=== PATIENT | female | born 1985 | race African-American/Black ===

== ENCOUNTER 2016-08-09 23:21 | Emergency (ER) | payer OTHER ==
[~2016-08-09] VITALS: Ht 170.2 cm; Wt 66.0 kg
[2016-08-09 23:24] VITALS: BP 128/85; PULSE 80; RESP 18; TEMP 98.7; O2SAT 99
[2016-08-09] MEDS ORDERED: SERT-132 PO (23:30)
[2016-08-09] MEDS ORDERED: ZYPR5TAB PO (23:30)
[2016-08-09] MEDS ORDERED: LEXA10TA PO (23:30)
[2016-08-09] MEDS ORDERED: TRAZ50TA12 PO (23:30)
--- NOTE | 2016-08-10 00:05 | PD ---
HPI Chief Complaint: Psychiatric Symptoms Time Seen by Provider: 23:30 Travel History International Travel<30 days: No Contact w/Intl Traveler<30days: No Traveled to known affect area: No History of Present Illness HPI This patient is a 31 y.o. black female with a history of post depression with the complaint of needing to see a psychiatrist. She had a baby 7 months ago and has since been struggling with being a new mom. During this time, she was living with family in [place], which was very worrisome for her. KB says that his stress caused her to have a manic episode and "she lost it," prompting her to take her to [facility] for treatment last Monday. She was discharged home with antidepressants but did not take them. She had another manic episode after this, and her took her to [facility] for treatment. Since then , she has moved in with her grandmother, which is also stressful for her. Tonight, she is accompanied by her and her cousin who brought her to [place] concerned for her psychiatric well being. She denies suicidal or homocidal ideation, and states that she wants to see a psychiatrist to help her cope with her life struggles. PFSH Past Medical History Narrative Medical Post depression Psychiatric: Yes (PTSD, POST DEPRESSION) ?: Not : 1 Para: 1 Past Surgical History Surgical History: No Previous Surgery Family History Family History: Negative Social History Alcohol Use: No Tobacco Use: No Substance Use: No Allergies-Medications (Allergen,Severity, Reaction): Coded Allergies: Cinnamon (Verified Allergy, Unknown, 08/09/16) Soso (Verified Allergy, Unknown, 08/09/16) Reported Meds & Prescriptions Reported Meds & Active Scripts Active Reported Zyprexa (Olanzapine) 5 Mg Tab 5 Mg PO DAILY Lexapro (Escitalopram Oxalate) 10 Mg Tab 10 Mg PO DAILY Trazodone (Trazodone HCl) 50 Mg Tab 50 Mg PO HS Sertraline (Sertraline HCl) 50 Mg Tab 50 Mg PO DAILY Review of Systems Except as stated in HPI: all other systems reviewed are Neg Psychiatric: Positive: Depression, Mood Disorder (Patient states feeling "manic " ) Physical Exam Exam Limitations: Poor Historian Narrative Most of history obtained from and cousin. Data Data Last Documented VS Vital Signs Date Time Temp Pulse Resp B/P Pulse Ox O2 Delivery O2 Flow Rate FiO2 08/09/16 23:24 98.7 80 18 128/85 99 Orders Complete Blood Count With Diff (08/09/16 23:32) Comprehensive Metabolic Panel (08/09/16 23:32) Urinalysis - C+S If Indicated (08/09/16 23:32) Beta Hcg (Quant/Titer) (08/09/16 23:32) Psych Screen (08/09/16 23:32) Drug Screen, Random Urine (08/09/16 23:32) Alcohol (Ethanol) (08/09/16 23:32) Salicylates (Aspirin) (08/09/16 23:32) Tylenol (Acetaminophen) (08/09/16 23:32) Free Thyroxine (T4) (08/09/16 23:53) Thyroid Stimulating Hormone (08/09/16 23:53) Labs Laboratory Tests Test 08/09/16 23:53 White Blood Count 8.1 TH/MM3 Red Blood Count 4.64 MIL/MM3 Hemoglobin 13.2 GM/DL Hematocrit 39.6 % Mean Corpuscular Volume 85.3 FL Mean Corpuscular Hemoglobin 28.4 PG Mean Corpuscular Hemoglobin 33.3 % Concent Red Cell Distribution Width 13.1 % Platelet Count 272 TH/MM3 Mean Platelet Volume 9.6 FL Neutrophils (%) (Auto) 72.7 % Lymphocytes (%) (Auto) 16.7 % Monocytes (%) (Auto) 9.1 % Eosinophils (%) (Auto) 1.0 % Basophils (%) (Auto) 0.5 % Neutrophils # (Auto) 5.9 TH/MM3 Lymphocytes # (Auto) 1.4 TH/MM3 Monocytes # (Auto) 0.7 TH/MM3 Eosinophils # (Auto) 0.1 TH/MM3 Basophils # (Auto) 0.0 TH/MM3 CBC Comment DIFF FINAL Differential Comment Urine Color LIGHT-YELLOW Urine Turbidity CLEAR Urine pH 6.5 Urine Specific [place] 1.004 Urine Protein NEG mg/dL Urine Glucose (UA) NEG mg/dL Urine Ketones NEG mg/dL Urine Occult Blood MOD Urine Nitrite NEG Urine Bilirubin NEG Urine Urobilinogen LESS THAN 2.0 MG/DL Urine Leukocyte Esterase NEG Urine RBC 1 /hpf Urine WBC 1 /hpf Urine Squamous Epithelial <1 /hpf Cells Urine Mucus FEW /lpf Microscopic Urinalysis Comment CULT NOT INDICATED Sodium Level 139 MEQ/L Potassium Level 3.8 MEQ/L Chloride Level 105 MEQ/L Carbon Dioxide Level 24.9 MEQ/L Anion Gap 9 MEQ/L Blood Urea Nitrogen 11 MG/DL Creatinine 0.76 MG/DL Estimat Glomerular Filtration 109 ML/MIN Rate Random Glucose 91 MG/DL Calcium Level 8.7 MG/DL Total Bilirubin 0.4 MG/DL Aspartate Amino Transf 13 U/L (AST/SGOT) Alanine Aminotransferase 28 U/L (ALT/SGPT) Alkaline Phosphatase 69 U/L Total Protein 7.8 GM/DL Albumin 4.1 GM/DL Free Thyroxine 1.14 NG/DL Thyroid Stimulating Hormone 0.983 uIU/ML 3rd Gen Human Chorionic Gonadotropin, LESS THAN 1 Quant MIU/ML Salicylates Level LESS THAN 1.7 MG/DL Urine Opiates Screen NEG Acetaminophen Level LESS THAN 2.0 MCG/ML Urine Barbiturates Screen NEG Urine Amphetamines Screen NEG Urine Benzodiazepines Screen NEG Urine Cocaine Screen NEG Urine Cannabinoids Screen NEG Ethyl Alcohol Level LESS THAN 3 MG/DL MDM Medical Decision Making Medical Screen Exam Complete: Yes Emergency Medical Condition: No Differential Diagnosis Post depression, bipolar, psychosis Narrative Course please refer to johana note for disposition. results of work up pending at time of dictation. Waqar Lipscomb MD Aug 10, 2016 00:05
--- NOTE | 2016-08-10 00:06 | PD ---
HPI Chief Complaint: Psychiatric Symptoms Time Seen by Provider: 23:30 Travel History International Travel<30 days: No Contact w/Intl Traveler<30days: No Traveled to known affect area: No History of Present Illness HPI Patient is a 31 year female presented to the emergency voluntarily wanting to be evaluated by psychiatrist due to possible depression, increased stress. Patient has no history of psychological illness other than anxiety. She is brought in by her who states that she had a breakdown on August 01 where she was brought to [facility] under a Duggan act. Patient reports that she just "lost it". She equates it to an adult a temperature interim. She reports increased stress regarding finances, breast-feeding, family issues. Patient was diagnosed with a urinary tract infection then, she reports completing course of antibiotics and denies any urinary complaints. Patient denies any physical complaints at this time. Per 's report prior to the first Duggan act at [facility] she was hallucinating thinking that she was a [place] Aura. A denies any illicit drug use, she denies any suicidal or homicidal ideations, she denies any visual auditory hallucinations. PFSH Past Medical History Anxiety: Yes Psychiatric: Yes (PTSD, POST DEPRESSION) ?: Not : 1 Para: 1 Social History Alcohol Use: No Tobacco Use: No Substance Use: No Allergies-Medications (Allergen,Severity, Reaction): Coded Allergies: Cinnamon (Verified Allergy, Unknown, 08/09/16) [place] (Verified Allergy, Unknown, 08/09/16) Reported Meds & Prescriptions Reported Meds & Active Scripts Active Reported Zyprexa (Olanzapine) 5 Mg Tab 5 Mg PO DAILY Lexapro (Escitalopram Oxalate) 10 Mg Tab 10 Mg PO DAILY Trazodone (Trazodone HCl) 50 Mg Tab 50 Mg PO HS Sertraline (Sertraline HCl) 50 Mg Tab 50 Mg PO DAILY Review of Systems Except as stated in HPI: all other systems reviewed are Neg Psychiatric: Positive: Depression, Mood Disorder Physical Exam Narrative GENERAL: Well-developed, well-nourished, alert female. Resting comfortably in no acute distress. SKIN: Focused skin assessment warm/dry. HEAD: Atraumatic. Normocephalic. EYES: Pupils equal and round. No scleral icterus. No injection or drainage. ENT: No nasal bleeding or discharge. Mucous membranes pink and moist. NECK: Trachea midline. No JVD. CARDIOVASCULAR: Regular rate and rhythm. No murmur appreciated. RESPIRATORY: No accessory muscle use. Clear to auscultation. Breath sounds equal bilaterally. GASTROINTESTINAL: Abdomen soft, non-tender, nondistended. Hepatic and splenic margins not palpable. MUSCULOSKELETAL: No obvious deformities. No clubbing. No cyanosis. No edema. NEUROLOGICAL: Awake and alert. No obvious cranial nerve deficits. Motor grossly within normal limits. Normal speech. PSYCHIATRIC: Appropriate mood and affect; insight and judgment normal. Data Data Last Documented VS Vital Signs Date Time Temp Pulse Resp B/P Pulse Ox O2 Delivery O2 Flow Rate FiO2 08/09/16 23:24 98.7 80 18 128/85 99 Orders Complete Blood Count With Diff (08/09/16 23:32) Comprehensive Metabolic Panel (08/09/16 23:32) Urinalysis - C+S If Indicated (08/09/16 23:32) Beta Hcg (Quant/Titer) (08/09/16 23:32) Psych Screen (08/09/16 23:32) Drug Screen, Random Urine (08/09/16 23:32) Alcohol (Ethanol) (08/09/16 23:32) Salicylates (Aspirin) (08/09/16 23:32) Tylenol (Acetaminophen) (08/09/16 23:32) Free Thyroxine (T4) (08/09/16 23:53) Thyroid Stimulating Hormone (08/09/16 23:53) Labs Laboratory Tests Test 08/09/16 23:53 White Blood Count 8.1 TH/MM3 Red Blood Count 4.64 MIL/MM3 Hemoglobin 13.2 GM/DL Hematocrit 39.6 % Mean Corpuscular Volume 85.3 FL Mean Corpuscular Hemoglobin 28.4 PG Mean Corpuscular Hemoglobin 33.3 % Concent Red Cell Distribution Width 13.1 % Platelet Count 272 TH/MM3 Mean Platelet Volume 9.6 FL Neutrophils (%) (Auto) 72.7 % Lymphocytes (%) (Auto) 16.7 % Monocytes (%) (Auto) 9.1 % Eosinophils (%) (Auto) 1.0 % Basophils (%) (Auto) 0.5 % Neutrophils # (Auto) 5.9 TH/MM3 Lymphocytes # (Auto) 1.4 TH/MM3 Monocytes # (Auto) 0.7 TH/MM3 Eosinophils # (Auto) 0.1 TH/MM3 Basophils # (Auto) 0.0 TH/MM3 CBC Comment DIFF FINAL Differential Comment Urine Color LIGHT-YELLOW Urine Turbidity CLEAR Urine pH 6.5 Urine Specific [place] 1.004 Urine Protein NEG mg/dL Urine Glucose (UA) NEG mg/dL Urine Ketones NEG mg/dL Urine Occult Blood MOD Urine Nitrite NEG Urine Bilirubin NEG Urine Urobilinogen LESS THAN 2.0 MG/DL Urine Leukocyte Esterase NEG Urine RBC 1 /hpf Urine WBC 1 /hpf Urine Squamous Epithelial <1 /hpf Cells Urine Mucus FEW /lpf Microscopic Urinalysis Comment CULT NOT INDICATED Sodium Level 139 MEQ/L Potassium Level 3.8 MEQ/L Chloride Level 105 MEQ/L Carbon Dioxide Level 24.9 MEQ/L Anion Gap 9 MEQ/L Blood Urea Nitrogen 11 MG/DL Creatinine 0.76 MG/DL Estimat Glomerular Filtration 109 ML/MIN Rate Random Glucose 91 MG/DL Calcium Level 8.7 MG/DL Total Bilirubin 0.4 MG/DL Aspartate Amino Transf 13 U/L (AST/SGOT) Alanine Aminotransferase 28 U/L (ALT/SGPT) Alkaline Phosphatase 69 U/L Total Protein 7.8 GM/DL Albumin 4.1 GM/DL Free Thyroxine 1.14 NG/DL Thyroid Stimulating Hormone 0.983 uIU/ML 3rd Gen Human Chorionic Gonadotropin, LESS THAN 1 Quant MIU/ML Salicylates Level LESS THAN 1.7 MG/DL Urine Opiates Screen NEG Acetaminophen Level LESS THAN 2.0 MCG/ML Urine Barbiturates Screen NEG Urine Amphetamines Screen NEG Urine Benzodiazepines Screen NEG Urine Cocaine Screen NEG Urine Cannabinoids Screen NEG Ethyl Alcohol Level LESS THAN 3 MG/DL MDM Medical Decision Making Medical Screen Exam Complete: Yes Emergency Medical Condition: Yes Interpretation(s) Laboratory Tests Test 08/09/16 23:53 White Blood Count 8.1 TH/MM3 Red Blood Count 4.64 MIL/MM3 Hemoglobin 13.2 GM/DL Hematocrit 39.6 % Mean Corpuscular Volume 85.3 FL Mean Corpuscular Hemoglobin 28.4 PG Mean Corpuscular Hemoglobin 33.3 % Concent Red Cell Distribution Width 13.1 % Platelet Count 272 TH/MM3 Mean Platelet Volume 9.6 FL Neutrophils (%) (Auto) 72.7 % Lymphocytes (%) (Auto) 16.7 % Monocytes (%) (Auto) 9.1 % Eosinophils (%) (Auto) 1.0 % Basophils (%) (Auto) 0.5 % Neutrophils # (Auto) 5.9 TH/MM3 Lymphocytes # (Auto) 1.4 TH/MM3 Monocytes # (Auto) 0.7 TH/MM3 Eosinophils # (Auto) 0.1 TH/MM3 Basophils # (Auto) 0.0 TH/MM3 CBC Comment DIFF FINAL Differential Comment Urine Color LIGHT-YELLOW Urine Turbidity CLEAR Urine pH 6.5 Urine Specific [place] 1.004 Urine Protein NEG mg/dL Urine Glucose (UA) NEG mg/dL Urine Ketones NEG mg/dL Urine Occult Blood MOD Urine Nitrite NEG Urine Bilirubin NEG Urine Urobilinogen LESS THAN 2.0 MG/DL Urine Leukocyte Esterase NEG Urine RBC 1 /hpf Urine WBC 1 /hpf Urine Squamous Epithelial <1 /hpf Cells Urine Mucus FEW /lpf Microscopic Urinalysis Comment CULT NOT INDICATED Sodium Level 139 MEQ/L Potassium Level 3.8 MEQ/L Chloride Level 105 MEQ/L Carbon Dioxide Level 24.9 MEQ/L Anion Gap 9 MEQ/L Blood Urea Nitrogen 11 MG/DL Creatinine 0.76 MG/DL Estimat Glomerular Filtration 109 ML/MIN Rate Random Glucose 91 MG/DL Calcium Level 8.7 MG/DL Total Bilirubin 0.4 MG/DL Aspartate Amino Transf 13 U/L (AST/SGOT) Alanine Aminotransferase 28 U/L (ALT/SGPT) Alkaline Phosphatase 69 U/L Total Protein 7.8 GM/DL Albumin 4.1 GM/DL Free Thyroxine 1.14 NG/DL Thyroid Stimulating Hormone 0.983 uIU/ML 3rd Gen Human Chorionic Gonadotropin, LESS THAN 1 Quant MIU/ML Salicylates Level LESS THAN 1.7 MG/DL Urine Opiates Screen NEG Acetaminophen Level LESS THAN 2.0 MCG/ML Urine Barbiturates Screen NEG Urine Amphetamines Screen NEG Urine Benzodiazepines Screen NEG Urine Cocaine Screen NEG Urine Cannabinoids Screen NEG Ethyl Alcohol Level LESS THAN 3 MG/DL Vital Signs Date Time Temp Pulse Resp B/P Pulse Ox O2 Delivery O2 Flow Rate FiO2 08/09/16 23:24 98.7 80 18 128/85 99 Differential Diagnosis Psychosis versus delirium versus UTI versus depression versus mood disorder versus substance abuse versus other Narrative Course Pt is a 31 year old female presenting voluntarily for psychiatric evaluation. She denies any suicidal or homicidal ideations. Reports stress and post depression. Recent BA at [facility] on [address]. Pt has been cooperative and appropriate. Medical screening and psych eval discussed with pt. CBC, CMP, UA, UDS, acetaminophen, alcohol, salicylate levels reviewed and are unremarkable. Pt is medically cleared for psychiatric evaluation. Diagnosis Primary Impression: Medical clearance for psychiatric admission Condition: Stable Lisa Linn Aug 10, 2016 00:06
[2016-08-10 00:12] LABS: BLOOD, URINE MOD (NEG); GLUCOSE,URINE NEG (NEG); KETONE, URINE NEG (NEG); MUCUS URINE FEW /lpf (OCC); NITRITE,URINE NEG (NEG); PH, URINE 6.5 (5.0-8.5); SQUAMOUS EPITHELIAL CELL URINE <1 /hpf (0-5); URINE COLOR LIGHT-YELLOW (YELLW/STRAW)
[2016-08-10 00:18] LABS: AMPHETAMINE, URINE NEG (NEG); BARBITURATES, URINE NEG (NEG); COCAINE, URINE NEG (NEG)
[2016-08-10 00:25] LABS: AUTOMATED NEUTROPHIL # 5.9 TH/MM3 (1.8-7.7); BASOPHIL % 0.5 % (0.0-2.0); EOSINOPHIL # 0.1 TH/MM3 (0-0.4); HEMATOCRIT 39.6 % (35.0-46.0); HEMO FLAGS DIFF FINAL; LYMPH % 16.7 % (9.0-44.0); LYMPHOCYTE # 1.4 TH/MM3 (1.0-4.8); MEAN CELL VOLUME 85.3 FL (80.0-100.0); MEAN CORPUSCULAR HEMOGLOBIN 28.4 PG (27.0-34.0); MEAN CORPUSCULAR HGB CONC 33.3 % (32.0-36.0); MONO % 9.1 % (0.0-8.0); NEUT % 72.7 % (16.0-70.0); PLATELET COUNT 272 TH/MM3 (150-450); RED BLOOD COUNT 4.64 MIL/MM3 (4.00-5.30); RED CELL DISTRIBUTION WIDTH 13.1 % (11.6-17.2); WHITE BLOOD COUNT 8.1 TH/MM3 (4.0-11.0)
[2016-08-10 00:29] LABS: COMMENT (UR) CULT NOT INDICATED; CULTURE IF INDICATED CULT NOT INDICATED
[2016-08-10 00:34] LABS: ANION GAP 9 MEQ/L (5-15); BICARBONATE 24.9 MEQ/L (21.0-32.0); BLOOD UREA NITROGEN 11 MG/DL (7-18); CHLORIDE 105 MEQ/L (98-107); GLOMERULAR FILTRATION RATE 109 ML/MIN (>89); POTASSIUM 3.8 MEQ/L (3.5-5.1); SODIUM (NA) 139 MEQ/L (136-145)
[2016-08-10 00:35] LABS: AST (GOT) 13 U/L (15-37)
[2016-08-10 00:44] LABS: ACETAMINOPHEN LESS THAN 2.0 MCG/ML (10.0-30.0); ALKALINE PHOSPHATASE 69 U/L (45-117); ALT (GPT) 28 U/L (10-53); BETA HCG QUANT LESS THAN 1 MIU/ML (0-5); FREE T4 1.14 NG/DL (0.76-1.46); TOTAL BILIRUBIN ADULT 0.4 MG/DL (0.2-1.0)
== END 2016-08-10 03:58 | disposition home or self-care (01) ==
LOC: NEPD 23:21
DX: Z02.89 Encounter for other administrative examinations (principal); Z86.59 Personal history of other mental and behavioral disorders
CPT/HCPCS: 80053; 80307; 81001; 84439; 84443; 84702; 85025; 99284

== ENCOUNTER 2016-10-02 14:47 | Inpatient (IN) | payer OTHER ==
[~2016-10-02] VITALS: Ht 172.7 cm; Wt 66.5 kg
[2016-10-02] VITALS (7 sets, daily range): BP systolic 88–121; BP diastolic 50–70; PULSE 76–127; RESP 12–16; TEMP 98.9; O2SAT 97–100
[~2016-10-02 14:47] MED LIST: LEXA10TA PO; SERT-132 PO; TRAZ50TA12 PO; ZYPR5TAB PO
[2016-10-02] MEDS ORDERED: HALOPERIDOL LACTATE 5 MG/ML AMP IM ONE (15:15)
[2016-10-02] MEDS ORDERED: LORazepam 2 MG/ML VIAL IM ONE ×2 (15:15→17:30)
--- NOTE | 2016-10-02 15:39 | PD ---
HPI Chief Complaint: Psychiatric Symptoms Time Seen by Provider: 15:39 Travel History International Travel<30 days: No Contact w/Intl Traveler<30days: No Traveled to known affect area: No History of Present Illness HPI Is a 31-year-old female who presents under Duggan act. According to law enforcement report the patient was "diagnosed with depression as of August 10, 2016 and she is prescribed Abilify and has not taken her daily dosage. She was acting erratic and was not making sense with her comments. She was making statements about wanting/going to . She has been placed under a Duggan act twice since August 10, 2016. Per her her mental instability came from when she was dehydrated from being in a hot tub which caused her to have a urinary tract infection. UTI caustic chemical imbalance. Within the last 24 hours her behavior has been unusual and could not be controlled." Upon arrival the patient is acting erratically and is being uncooperative. She will not answer questions so history of present illness is limited. I tried calling the for information and he has not answered his phone. PFSH Past Medical History ?: Unknown Social History Tobacco Use: No Allergies-Medications (Allergen,Severity, Reaction): Coded Allergies: Cinnamon (Verified Allergy, Unknown, 10/02/16) [place] (Verified Allergy, Unknown, 10/02/16) Review of Systems ROS Limitations: Clinical Condition, Uncooperative Physical Exam Exam Limitations: Clinical Condition, Uncooperative Narrative GENERAL: Well-nourished, well-developed [-] patient, in no acute distress SKIN: Warm and dry. HEAD: Atraumatic. Normocephalic. EYES: Pupils equal and round. ENT: Mucosa pink and moist. NECK: Supple. Trachea midline. CARDIOVASCULAR: Regular rate. RESPIRATORY: No accessory muscle use. GASTROINTESTINAL: Flat. MUSCULOSKELETAL: No obvious deformities. No clubbing. No cyanosis. No edema. NEUROLOGICAL: Awake and alert. Oriented 3. No obvious cranial nerve deficits. Motor grossly within normal limits. Normal speech. Moves all extremities. 5/5 strength to all extremities. PSYCHIATRIC: Delusional thought processes. Data Data Last Documented VS Vital Signs Date Time Temp Pulse Resp B/P Pulse Ox O2 Delivery O2 Flow Rate FiO2 10/03/16 10:46 91 20 120/71 100 Room Air 10/02/16 15:34 98.9 Orders Haloperidol Inj (Haldol Inj) (10/02/16 15:15) Lorazepam Inj (Ativan Inj) (10/02/16 15:15) Complete Blood Count With Diff (10/02/16 15:18) Comprehensive Metabolic Panel (10/02/16 15:18) Urinalysis - C+S If Indicated (10/02/16 15:18) Ed Urine Pregnancytest Poc (10/02/16 15:18) Psych Screen (10/02/16 15:18) Drug Screen, Random Urine (10/02/16 15:18) Alcohol (Ethanol) (10/02/16 15:18) Salicylates (Aspirin) (10/02/16 15:18) Tylenol (Acetaminophen) (10/02/16 15:18) Ct Brain W/O Iv Contrast(Rout) (10/02/16 ) Lorazepam Inj (Ativan Inj) (10/02/16 17:30) Lorazepam Inj (Ativan Inj) (10/02/16 17:30) Potassium Chloride (Kcl) (10/02/16 18:15) Iv Access Insert/Monitor (10/02/16 18:42) Sodium Chlor 0.9% 1000 Ml Inj (Ns 1000 M (10/02/16 18:42) Sodium Chloride 0.9% Flush (Ns Flush) (10/02/16 18:45) Diet Heart Healthy (10/03/16 Breakfast) Diet Regular Basic (10/03/16 Lunch) Ziprasidone Inj (Geodon Inj) (10/03/16 11:15) Diphenhydramine Inj (Benadryl Inj) (10/03/16 11:15) Labs Laboratory Tests Test 10/02/16 10/02/16 10/02/16 15:18 16:10 17:12 Urine Color YELLOW Urine Turbidity HAZY Urine pH 5.5 Urine Specific [place] 1.037 Urine Protein 30 mg/dL Urine Glucose (UA) NEG mg/dL Urine Ketones 40 mg/dL Urine Occult Blood NEG Urine Nitrite NEG Urine Bilirubin NEG Urine Urobilinogen LESS THAN 2.0 MG/DL Urine Leukocyte Esterase NEG Urine RBC 1 /hpf Urine WBC 2 /hpf Urine Squamous Epithelial 2 /hpf Cells Urine Mucus MANY /lpf Microscopic Urinalysis Comment CULT NOT INDICATED White Blood Count 5.8 TH/MM3 Red Blood Count 4.10 MIL/MM3 Hemoglobin 11.8 GM/DL Hematocrit 36.3 % Mean Corpuscular Volume 88.4 FL Mean Corpuscular Hemoglobin 28.8 PG Mean Corpuscular Hemoglobin 32.6 % Concent Red Cell Distribution Width 14.5 % Platelet Count 212 TH/MM3 Mean Platelet Volume 9.2 FL Neutrophils (%) (Auto) 71.7 % Lymphocytes (%) (Auto) 17.2 % Monocytes (%) (Auto) 10.2 % Eosinophils (%) (Auto) 0.5 % Basophils (%) (Auto) 0.4 % Neutrophils # (Auto) 4.2 TH/MM3 Lymphocytes # (Auto) 1.0 TH/MM3 Monocytes # (Auto) 0.6 TH/MM3 Eosinophils # (Auto) 0.0 TH/MM3 Basophils # (Auto) 0.0 TH/MM3 CBC Comment DIFF FINAL Differential Comment Sodium Level 138 MEQ/L Potassium Level 3.3 MEQ/L Chloride Level 107 MEQ/L Carbon Dioxide Level 22.6 MEQ/L Anion Gap 8 MEQ/L Blood Urea Nitrogen 12 MG/DL Creatinine 0.77 MG/DL Estimat Glomerular Filtration 107 ML/MIN Rate Random Glucose 94 MG/DL Calcium Level 8.3 MG/DL Total Bilirubin 0.5 MG/DL Aspartate Amino Transf 14 U/L (AST/SGOT) Alanine Aminotransferase 22 U/L (ALT/SGPT) Alkaline Phosphatase 60 U/L Total Protein 7.0 GM/DL Albumin 3.6 GM/DL Salicylates Level LESS THAN 1.7 MG/DL Acetaminophen Level LESS THAN 2.0 MCG/ML Ethyl Alcohol Level LESS THAN 3 MG/DL Urine Opiates Screen NEG Urine Barbiturates Screen NEG Urine Amphetamines Screen NEG Urine Benzodiazepines Screen NEG Urine Cocaine Screen NEG Urine Cannabinoids Screen NEG MDM Medical Decision Making Medical Screen Exam Complete: Yes Emergency Medical Condition: Yes Medical Record Reviewed: Yes Differential Diagnosis Medical clearance for psych evaluation, psychosis, delusional thoughts Narrative Course Patient presents under a Duggan act. Physical examination and vital signs are essentially unremarkable. Patient has no medical complaints to report. Psych screen has been ordered. If the laboratory results are unremarkable, the patient will be medically cleared for psychiatric evaluation and disposition. 1650: The arrived at the ER. I spoke with the and he said that over the past 7 years since their first child was born the patient has had signs of psychosis here and there. Over the past 9 months since her second child has been born the patient has had increased symptoms of erratic behavior. Over the past 3 months that has even been more. He says she has been Duggan acted here once since August 10 after she was diagnosed with depression. Her visit number for that visit is the [phone]. Has been states the patient called the police herself today because she was paranoid thought he was breaking into the house when he was entering the house, coming home. She has family history of bipolar schizophrenia; brother and father. Has been states she has a master's degree and used to be a schoolteacher. He has tried to get her outpatient therapy at 2 different medical centers, one including [facility]. She supposed be taking Abilify and has also tried Zoloft in the past. Per the she doesn't want to take medications and has not been taking them. Her LANE ATTENDANT is in [place]. She has history of rheumatoid arthritis and fibromyalgia. She is allergic to walnuts and cinnamon. 1758: CBC unremarkable. Potassium 3.3. Potassium chloride by mouth ordered. UPT negative. Urinalysis pending. 182: CT head with no acute findings. Drug screen negative. 1830: BP low. IV site established and NS bolus ordered. BP will be stabilized and patient will be moved to J POD. Diagnosis Primary Impression: Medical clearance for psychiatric admission Condition: Stable Shelby Browning Oct 02, 2016 15:39
[2016-10-02 16:56] LABS: AUTOMATED NEUTROPHIL # 4.2 TH/MM3 (1.8-7.7); BASOPHIL % 0.4 % (0.0-2.0); EOSINOPHIL % 0.5 % (0.0-4.0); HEMATOCRIT 36.3 % (35.0-46.0); HEMO FLAGS DIFF FINAL; LYMPH % 17.2 % (9.0-44.0); MEAN CELL VOLUME 88.4 FL (80.0-100.0); MEAN CORPUSCULAR HEMOGLOBIN 28.8 PG (27.0-34.0); MEAN CORPUSCULAR HGB CONC 32.6 % (32.0-36.0); MONO % 10.2 % (0.0-8.0); NEUT % 71.7 % (16.0-70.0); PLATELET COUNT 212 TH/MM3 (150-450); RED CELL DISTRIBUTION WIDTH 14.5 % (11.6-17.2); WHITE BLOOD COUNT 5.8 TH/MM3 (4.0-11.0)
[2016-10-02 17:00] LABS: ANION GAP 8 MEQ/L (5-15); AST (GOT) 14 U/L (15-37); BICARBONATE 22.6 MEQ/L (21.0-32.0); BLOOD UREA NITROGEN 12 MG/DL (7-18); CHLORIDE 107 MEQ/L (98-107); GLOMERULAR FILTRATION RATE 107 ML/MIN (>89); POTASSIUM 3.3 MEQ/L (3.5-5.1); SODIUM (NA) 138 MEQ/L (136-145)
[2016-10-02 17:01] LABS: ALCOHOL LESS THAN 3 MG/DL (0-5)
[2016-10-02 17:04] LABS: ACETAMINOPHEN LESS THAN 2.0 MCG/ML (10.0-30.0); ALKALINE PHOSPHATASE 60 U/L (45-117); ALT (GPT) 22 U/L (10-53); TOTAL BILIRUBIN ADULT 0.5 MG/DL (0.2-1.0)
[2016-10-02] MEDS ORDERED: LORazepam 2 MG/ML VIAL IV PUSH ONE (17:30)
[2016-10-02] MEDS ORDERED: POTASSIUM CHLORIDE 20 MEQ CONTROLLED RELEASE TAB PO ONE (18:15)
--- NOTE | 2016-10-02 18:22 | RADRPT ---
EXAM DATE/TIME: 10/02/2016 17:51 [facility] COMPARISON: No previous studies available for comparison. INDICATIONS : Altered mental status. RADIATION DOSE: 29.55 CTDIvol (mGy) MEDICAL HISTORY : None SURGICAL HISTORY : None. ENCOUNTER: Initial ACUITY: 1 day PAIN SCALE: Non-responsive LOCATION: Bilateral cranial TECHNIQUE: Multiple contiguous axial images were obtained of the head. Using automated exposure control and adj ustment of the mA and/or kV according to patient size, radiation dose was kept as low as reasonably a chievable to obtain optimal diagnostic quality images. DICOM format image data is available electro nically for review and comparison. FINDINGS: CEREBRUM: The ventricles are normal for age. No evidence of midline shift, mass lesion, hemorrhage or acute in farction. No extra-axial fluid collections are seen. POSTERIOR FOSSA: The cerebellum and brainstem are intact. The 4th ventricle is midline. The cerebellopontine angle i s unremarkable. EXTRACRANIAL: The visualized portion of the orbits is intact. SKULL: The calvaria is intact. No evidence of skull fracture. CONCLUSION: No acute intracranial findings. Kamaljit Hoffmann MD on October 02, 2016 at 18:20 Board Certified Radiologist. This report was verified electronically.
[2016-10-02] MEDS ORDERED: SODIUM CHLOR 0.9% 1000 ML INJ 1,000 ML IV SCH (18:42)
[2016-10-02] MEDS ORDERED: SODIUM CHLORIDE 0.9% FLUSH 10 ML FLUSH IV FLUSH PRN (18:45)
[2016-10-02 19:23] LABS: BLOOD, URINE NEG (NEG); COMMENT (UR) CULT NOT INDICATED; CULTURE IF INDICATED CULT NOT INDICATED; GLUCOSE,URINE NEG (NEG); KETONE, URINE 40 mg/dL (NEG); MUCUS URINE MANY /lpf (OCC); NITRITE,URINE NEG (NEG); PH, URINE 5.5 (5.0-8.5); SQUAMOUS EPITHELIAL CELL URINE 2 /hpf (0-5); URINE COLOR YELLOW (YELLW/STRAW)
[2016-10-03 00:26] VITALS: BP 103/61; PULSE 85; RESP 16; O2SAT 98
[2016-10-03 07:41] VITALS: BP 109/68; PULSE 87; RESP 16; O2SAT 100
[2016-10-03 10:46] VITALS: BP 120/71; PULSE 91; RESP 20; O2SAT 100
[2016-10-03] MEDS ORDERED: ZIPRASIDONE MESYLATE 20 MG VIAL IM ONE (11:15)
[2016-10-03] MEDS ORDERED: diphenhydrAMINE HCL 50 MG/ML VIAL IM ONE (11:15)
[2016-10-03] MEDS ORDERED: LORazepam 2 MG/ML VIAL IM PRN (13:15)
[2016-10-03] MEDS ORDERED: diphenhydrAMINE HCL 50 MG CAP PO PRN (13:15)
[2016-10-03] MEDS ORDERED: ACETAMINOPHEN 325 MG TAB PO PRN (13:15)
[2016-10-03] MEDS ORDERED: MAGNESIUM HYDROXIDE SUSP 30 ML CUP PO PRN (13:15)
[2016-10-03] MEDS ORDERED: LORazepam 0.5 MG TAB PO PRN (13:15)
[2016-10-03] MEDS ORDERED: traZODone HCL 50 MG TAB PO PRN (13:15)
[2016-10-03] MEDS ORDERED: LORazepam 1 MG TAB PO PRN (13:15)
[2016-10-03] MEDS ORDERED: ALUMINUM/MAGNESIUM/SIMETH 30 ML CUP PO PRN (13:15)
--- NOTE | 2016-10-03 13:33 | HHI.HP ---
Provisional Diagnosis Admission Date Oct 03, 2016 at 13:03 [place] I. Paranoid schizophrenia Certification of Person's Competence To Provide Express and Informed Consent I have personally examined Vicki Beltre , a person being served at [facility] on, Oct 03, 2016 13:21. Express and informed consent means consent voluntarily given in writing, by a competent person, after sufficient explanation and disclosure of the subject matter involved to enable the person to make a knowing and willful decision without any element of force, fraud, deceit, duress, or other form of constraint or coercion. This person is 18 years of age or older, is not now known to be incompetent to consent to treatment with a guardian advocate, and does not have a health care surrogate or proxy currently making medical treatment decisions. I have found this person to be one of the following: [] Competent to provide express and informed consent, as defined above, for voluntary admission to this facility and is competent to provide express and informed consent for treatment. He/she has the consistent capacity to make well reasoned, willful, and knowing decisions concerning his or her medical or mental health treatment. The person fully and consistently understands the purpose of the admission for examination/placement and is fully capable of personally exercising all rights assured [place] [X] Incompetent to provide express and informed consent to voluntary admission, and this is incompetent to provide express and informed consent to treatment. The person must be transferred to involuntary status and a petition for a guardian advocate filed with the Circuit Court. [] Refusing to provide express and informed consent to voluntary admission but is competent to provide express and informed consent for treatment. The person must be discharged or transferred to involuntary status. Form shall be completed within 24 hours of a person's arrival at the receiving facility and filed in the clinical record of each person: 1. Admitted on a voluntary basis 2. Permitted to provide express and informed consent to his/her own treatment 3. Allowed to transfer from involuntary to voluntary status 4. Prior to permitting a person to consent to his or her own treatment after having been previously found incompetent to consent to treatment. History of Present Illness Capacity: Lacks Capacity HPI 31-year-old female with reported history of depression and 2 recent medical interventions for psychotic thinking currently presents under a Duggan act for irrational and bizarre behavior. Patient is a very poor historian, uncooperative and making little or no sense. She was brought to this facility under a Duggan act for acting erratically and not making sense. Apparently she has been prescribed Abilify but not taking this medication. She made statements that she wanted and was going to . She has been Duggan acted twice since August 10 of this year. According to the patient's , her mental instability came about as a result of dehydration and a urinary tract infection which occurred when she was in a hot tub. Over the last 24 hours, he reports her behavior has become increasingly unusual and uncontrollable. The patient was very difficult to interview by this physician. She claims this physician and the staff are laughing at her even though there is no evidence to support that. She is unable or unwilling to cooperate with staff and at one point blocked the exit of our nurse practitioner and nurse from the patient's room. She shows marked looseness of association as well as paranoid ideation. She feels healthcare providers here are attempting to harm her in some ill- defined way. She is unable to provide a cogent reason as to why she stopped taking her Abilify. Patient's was called again and states that her behavior has become increasingly erratic over the last 2 weeks. He believes she had a serotonin deficit in her brain but once that was corrected, something else has caused this irrational thinking and behavior. Review of Systems Except as stated in HPI: all other systems reviewed are Neg Past Psych History Psychological trauma history Denied for psychological trauma. History of depression. Violence risk - others (6 mos) Moderate to high. Patient blocked the exit of the nurse and nurse practitioner from her room. Violence risk - self (6 mos) High. Patient is psychotic and threatening to kill herself. Substance Abuse History Drugs/Alcohol past 12 months Denied Past Family Social History Coded Allergies: Cinnamon (Verified Allergy, Unknown, 10/02/16) [place] (Verified Allergy, Unknown, 10/02/16) Current Medications Medications (Trade) Dose Ordered Sig/Yg Route Start Time Stop Time Status Last Admin (NS Flush) 2 ml UNSCH PRN IV FLUSH 10/02/16 18:45 (Ativan) 1 mg Q6H PRN PO 10/03/16 13:15 (Ativan Inj) 1 mg Q6H PRN IM 10/03/16 13:15 (Ativan) 0.5 mg Q12H PRN PO 10/03/16 13:15 (Ativan Inj) 0.5 mg Q12H PRN IM 10/03/16 13:15 (Benadryl) 50 mg Q6H PRN PO 10/03/16 13:15 (Tylenol) 650 mg Q4H PRN PO 10/03/16 13:15 (Milk Of Magnesia Liq) 30 ml DAILY PRN PO 10/03/16 13:15 (Mag-Al Plus Susp Liq) 30 ml Q6H PRN PO 10/03/16 13:15 (Desyrel) 50 mg HS PRN PO 10/03/16 13:15 (Abilify) 2 mg HS PO 10/03/16 21:00 Family History Unknown Social History Patient is and sounds supportive and reasonable. Patient does have a child. 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 states patient is not alcoholic or substance abuser. Patient's Strengths (min. 2) Resilient and has access to healthcare. Physical Exam GENERAL: SKIN: Warm and dry. HEAD: Normocephalic. EYES: No scleral icterus. No injection or drainage. NECK: Supple, trachea midline. No JVD or lymphadenopathy. CARDIOVASCULAR: Regular rate and rhythm without murmurs, gallops, or rubs. RESPIRATORY: Breath sounds equal bilaterally. No accessory muscle use. GASTROINTESTINAL: Abdomen soft, non-tender, nondistended. MUSCULOSKELETAL: No cyanosis, or edema. BACK: Nontender without obvious deformity. No CVA tenderness. Vital Signs Vital Signs Date Time Temp Pulse Resp B/P Pulse Ox O2 Delivery O2 Flow Rate FiO2 10/03/16 10:46 91 20 120/71 100 Room Air 10/02/16 15:34 98.9 Mental Status Examination Speech: Incoherent Orientation: Person Memory: Unremarkable Thought Process: Loose Association Thought Content: Bizarre thinking, Paranoid Hallucination Type: None Attention and Concentration: Easily Distracted Suicidal Ideation: Yes Previous Suicide Attempts: No Homicidal Ideation: No Previous Homicide Attempts: No Insight: Poor Judgment: WNL, Unrealistic Affect: Irritable, Anxious Affect if Inappropriate: Blunt Mood: Anxious, Irritable Motor Activity: Normal gait Assessment & Plan Problem List: (1) Schizophrenia, paranoid type ICD Code: F20.0 Assessment & Plan Estimated LOS: days 31-year-old female brought in under a Duggan act for bizarre behavior and psychotic thinking. Patient meets criteria for paranoid schizophrenia in that she has a greater than six-month history of decompensation , coupled with acute psychotic symptoms and paranoid delusions. She also exhibits looseness of associations. She has undergone a head CT scan in the past, which does not demonstrate any abnormality. However, at this time she presents as a significant danger to herself and moderate to high danger to others. She is therefore being admitted for further evaluation and treatment. This physician is ordering a CBC and comprehensive metabolic profile to determine if any infectious process or metabolic process is causing or contributing to her psychosis. Likewise, we will also check her thyroid function, vitamin B-12 and vitamin D levels to ascertain if a deficiency is causing or contributing to her psychosis. She will also have an EKG to determine her cardiac conduction status and guarded against psychotropic medicines which might increase her QT interval. This physician started the patient back on Abilify 5 mg at bedtime but believes she will need long-acting injectable Abilify due to her noncompliance, lack of insight and markedly impaired judgment. Hospitalist consult is being obtained to look for hormonal imbalances. This physician spoke with the patient's nurse regarding her recent behavior. Finally, case management will be involved to provide further historical information and assist with disposition planning. David Hernandez MD Oct 03, 2016 13:32
--- NOTE | 2016-10-03 14:40 | PD.CONS ---
[facility] Consult Requested By DR BENAVIDES OF PSYCHIATRY Reason for Consult "HISTORY OF DEPRESSION and current psychoses please evaluate for hormonal imbalance" Primary Care Physician Unknown Diagnoses: (1) Schizophrenia, paranoid type (2) Rheumatoid arthritis (3) Fibromyalgia (4) Hypokalemia History of Present Illness Patient is a 31-year-old female who presents under A Duggan act. Patient was brought in by law enforcement and she was "diagnosed with depression as of 08/10/16 had been prescribed Abilify which is not taking. He has been acting erratic was not making sense with her comments. She was making statements of wanting to ." SHe was Duggan acted twice since 08/10/16. Per the she became mentally unstable after she was dehydrated from being in a hot tub which caused her to have a urinary tract infection and then the urinary tract infection caused a chemical imbalance per the . Within the last 24 hours has become more unusual and uncontrolled patient has been acting erratically and uncooperative Review of Systems ROS Limitations: Altered Mental Status, Uncooperative, Refused Psychiatric: COMPLAINS OF: Anxiety, Confusion, Mood changes, Depression, Agitation, Delusions Past Family Social History Allergies: Coded Allergies: Cinnamon (Verified Allergy, Unknown, 10/02/16) [place] (Verified Allergy, Unknown, 10/02/16) Past Medical History Arthritis and fibromyalgia and previous depression Past Surgical History Denies Reported Medications None Active Ordered Medications Current Medications Haloperidol Lactate (Haldol Inj) 10 mg ONCE ONCE IM Last administered on 15:32; Start 10/02/16 at 15:15; Stop 10/02/16 at 15:16; Status DC Lorazepam (Ativan Inj) 2 mg ONCE ONCE IM Last administered on 10/02/16 15:31 ; Start 10/02/16 at 15:15; Stop 10/02/16 at 15:16; Status DC Lorazepam (Ativan Inj) 2 mg ONCE ONCE IV PUSH ; Start 10/02/16 at 17:30; Stop 10/02/16 at 17:30; Status DC Lorazepam (Ativan Inj) 2 mg ONCE ONCE IM Last administered on 10/02/16 17:47 ; Start 10/02/16 at 17:30; Stop 10/02/16 at 17:31; Status DC Potassium Chloride 20 meq 20 meq ONCE ONCE PO ; Start 10/02/16 at 18:15; Stop 10/02/16 at 18:16; Status DC Sodium Chloride (NS 1000 ml Inj) 1,000 ml @ 1,000 mls/hr Q1H IV Last administered on 10/02/16 18:49; Start 10/02/16 at 18:42; Stop 10/02/16 at 19:41 ; Status DC Sodium Chloride (NS Flush) 2 ml UNSCH PRN IV FLUSH FLUSH AFTER USING IV ACCESS ; Start 10/02/16 at 18:45 Ziprasidone (Geodon Inj) 20 mg ONCE ONCE IM Last administered on 10/03/16 11: 15; Start 10/03/16 at 11:15; Stop 10/03/16 at 11:16; Status DC Diphenhydramine HCl (Benadryl Inj) 50 mg ONCE ONCE IM Last administered on 11:15; Start 10/03/16 at 11:15; Stop 10/03/16 at 11:16; Status DC Lorazepam (Ativan) 1 mg Q6H PRN PO MODERATE TO SEVERE ANXIETY; Start 10/03/16 at 13:15 Lorazepam (Ativan Inj) 1 mg Q6H PRN IM MODERATE TO SEVERE ANXIETY; Start at 13:15 Lorazepam (Ativan) 0.5 mg Q12H PRN PO MODERATE TO SEVERE ANXIETY; Start at 13:15 Lorazepam (Ativan Inj) 0.5 mg Q12H PRN IM MODERATE TO SEVERE ANXIETY; Start at 13:15 Diphenhydramine HCl (Benadryl) 50 mg Q6H PRN PO For mild anxiety and/or EPS; Start 10/03/16 at 13:15 Acetaminophen (Tylenol) 650 mg Q4H PRN PO Pain 1-5 or Temp >101F; Start at 13:15 Magnesium Hydroxide (Milk Of Magnesia Liq) 30 ml DAILY PRN PO CONSTIPATION; Start 10/03/16 at 13:15 Al Hydrox/Mg Hydrox/Simethicone (Mag-Al Plus Susp Liq) 30 ml Q6H PRN PO DYSPEPSIA; Start 10/03/16 at 13:15 Trazodone HCl (Desyrel) 50 mg HS PRN PO INSOMNIA; Start 10/03/16 at 13:15 Aripiprazole (Abilify) 2 mg HS PO ; Start 10/03/16 at 21:00 Family History Psychiatric diagnoses in the family- father and brother paranoid schizophrenic Social History supportive Recent child Has a master's degree No substance or alcohol abuse Physical Exam Vital Signs Vital Signs Date Time Temp Pulse Resp B/P Pulse Ox O2 Delivery O2 Flow Rate FiO2 10/03/16 10:46 91 20 120/71 100 Room Air 10/03/16 07:41 87 16 109/68 100 Room Air 10/03/16 00:26 85 16 103/61 98 10/02/16 23:36 82 16 108/63 98 Room Air 10/02/16 20:00 76 16 103/61 99 Room Air 10/02/16 18:57 82 14 91/55 98 Room Air 10/02/16 18:49 82 12 88/50 97 Room Air 10/02/16 17:13 81 14 107/59 99 Room Air 10/02/16 15:38 127 16 121/70 100 Room Air 10/02/16 15:34 98.9 123 16 121/70 100 Physical Exam GENERAL: This is a well-nourished, well-developed patient, in no apparent distress. SKIN: No rashes, ecchymoses or lesions. Cool and dry. HEAD: Atraumatic. Normocephalic. No temporal or scalp tenderness. EYES: Pupils equal round and reactive. Extraocular motions intact. No scleral icterus. No injection or drainage. ENT: Nose without bleeding, purulent drainage or septal hematoma. Throat without erythema, tonsillar hypertrophy or exudate. Uvula midline. Airway patent. NECK: Trachea midline. No JVD or lymphadenopathy. Supple, nontender, no meningeal signs. CARDIOVASCULAR: Regular rate and rhythm without murmurs, gallops, or rubs. S1- S2 no S3 or S4 no heave or thrill RESPIRATORY: Clear to auscultation. Breath sounds equal bilaterally. No wheezes , rales, or rhonchi. GASTROINTESTINAL: Abdomen soft, non-tender, nondistended. No hepato-splenomegaly , or palpable masses. No guarding. MUSCULOSKELETAL: Extremities without clubbing, cyanosis, or edema. No joint tenderness, effusion, or edema noted. No calf tenderness. Negative Homans sign bilaterally. NEUROLOGICAL: Awake and alert. Cranial nerves II through XII intact. Motor and sensory grossly within normal limits. Five out of 5 muscle strength in all muscle groups. Normal speech. Insight and judgment is limited--mood and behavior are inappropriate Laboratory Laboratory Tests Test 10/02/16 10/02/16 10/02/16 15:18 16:10 17:12 Urine Color YELLOW Urine Turbidity HAZY Urine pH 5.5 Urine Specific [place] 1.037 Urine Protein 30 Urine Glucose (UA) NEG Urine Ketones 40 Urine Occult Blood NEG Urine Nitrite NEG Urine Bilirubin NEG Urine Urobilinogen LESS THAN 2.0 Urine Leukocyte Esterase NEG Urine RBC 1 Urine WBC 2 Urine Squamous Epithelial 2 Cells Urine Mucus MANY Microscopic Urinalysis Comment CULT NOT INDICATED White Blood Count 5.8 Red Blood Count 4.10 Hemoglobin 11.8 Hematocrit 36.3 Mean Corpuscular Volume 88.4 Mean Corpuscular Hemoglobin 28.8 Mean Corpuscular Hemoglobin 32.6 Concent Red Cell Distribution Width 14.5 Platelet Count 212 Mean Platelet Volume 9.2 Neutrophils (%) (Auto) 71.7 Lymphocytes (%) (Auto) 17.2 Monocytes (%) (Auto) 10.2 Eosinophils (%) (Auto) 0.5 Basophils (%) (Auto) 0.4 Neutrophils # (Auto) 4.2 Lymphocytes # (Auto) 1.0 Monocytes # (Auto) 0.6 Eosinophils # (Auto) 0.0 Basophils # (Auto) 0.0 CBC Comment DIFF FINAL Differential Comment Sodium Level 138 Potassium Level 3.3 Chloride Level 107 Carbon Dioxide Level 22.6 Anion Gap 8 Blood Urea Nitrogen 12 Creatinine 0.77 Estimat Glomerular Filtration 107 Rate Random Glucose 94 Calcium Level 8.3 Total Bilirubin 0.5 Aspartate Amino Transf 14 (AST/SGOT) Alanine Aminotransferase 22 (ALT/SGPT) Alkaline Phosphatase 60 Total Protein 7.0 Albumin 3.6 Salicylates Level LESS THAN 1.7 Acetaminophen Level LESS THAN 2.0 Ethyl Alcohol Level LESS THAN 3 Urine Opiates Screen NEG Urine Barbiturates Screen NEG Urine Amphetamines Screen NEG Urine Benzodiazepines Screen NEG Urine Cocaine Screen NEG Urine Cannabinoids Screen NEG Result Diagram: 10/02/16 1610 10/02/16 1610 Imaging Last Impressions Head CT 10/02/16 0000 Signed Impressions: Service Date/Time: Sunday, October 02, 2016 17:51 - CONCLUSION: No acute intracranial findings. Kamaljit Hoffmann MD Assessment and Plan Problem List: (1) Rheumatoid arthritis ICD Code: M06.9 Status: Acute (2) Fibromyalgia ICD Code: M79.7 Status: Acute (3) Schizophrenia, paranoid type ICD Code: F20.0 Status: Acute (4) Hypokalemia ICD Code: E87.6 Status: Acute Assessment and Plan Schizophrenia/paranoid type will defer to psychiatry Recent depression versus schizophrenia and paranoid type will defer to psychiatry History of rheumatoid arthritis stable Compliance with medications due to schizophrenia paranoid type Anxiety and depression will defer to psychiatry Hypokalemia we will replace We'll check labs TSH free T4 and hemoglobin A1c magnesium and phosphate levels AM CBC CMP Code Status Full CODE Discussed Condition With Patient and RNs in the J pod Tin Degroot DO Oct 03, 2016 14:40
[2016-10-03] MEDS: LORazepam 2 MG/ML VIAL IM PRN (16:27)
[2016-10-03 21:02] VITALS: BP 100/66; PULSE 89; RESP 18; TEMP 99; O2SAT 100
[2016-10-03] MEDS: ARIPiprazole 2 MG TAB PO SCH (21:24)
[2016-10-04 05:46] VITALS: BP 101/58; PULSE 107; RESP 18; TEMP 97.6; O2SAT 99
[2016-10-04 08:46] LABS: AUTOMATED NEUTROPHIL # 2.7 TH/MM3 (1.8-7.7); BASOPHIL % 0.5 % (0.0-2.0); EOSINOPHIL # 0.1 TH/MM3 (0-0.4); HEMATOCRIT 38.7 % (35.0-46.0); HEMO FLAGS DIFF FINAL; LYMPH % 32.2 % (9.0-44.0); LYMPHOCYTE # 1.5 TH/MM3 (1.0-4.8); MEAN CELL VOLUME 88.4 FL (80.0-100.0); MEAN CORPUSCULAR HEMOGLOBIN 29.1 PG (27.0-34.0); MEAN CORPUSCULAR HGB CONC 32.9 % (32.0-36.0); MONO % 7.3 % (0.0-8.0); PLATELET COUNT 228 TH/MM3 (150-450); RED BLOOD COUNT 4.37 MIL/MM3 (4.00-5.30); RED CELL DISTRIBUTION WIDTH 14.5 % (11.6-17.2); WHITE BLOOD COUNT 4.7 TH/MM3 (4.0-11.0)
[2016-10-04 09:06] LABS: ANION GAP 5 MEQ/L (5-15); AST (GOT) 16 U/L (15-37); BICARBONATE 28.1 MEQ/L (21.0-32.0); BLOOD UREA NITROGEN 8 MG/DL (7-18); CHLORIDE 106 MEQ/L (98-107); GLOMERULAR FILTRATION RATE 91 ML/MIN (>89); POTASSIUM 3.7 MEQ/L (3.5-5.1); SODIUM (NA) 139 MEQ/L (136-145)
[2016-10-04 09:34] LABS: ALKALINE PHOSPHATASE 62 U/L (45-117); ALT (GPT) 25 U/L (10-53); FREE T4 1.33 NG/DL (0.76-1.46); HDL CHOLESTEROL 70.6 MG/DL (40.0-60.0); LDL CHOLESTEROL 79 MG/DL (0-99); TOTAL BILIRUBIN ADULT 0.7 MG/DL (0.2-1.0)
--- NOTE | 2016-10-04 10:35 | HHI.PR ---
Subjective Remarks Patient is a 31-year-old female who presents under A Duggan act. Patient was brought in by law enforcement and she was "diagnosed with depression as of 08/10/16 had been prescribed Abilify which is not taking. He has been acting erratic was not making sense with her comments. She was making statements of wanting to ." SHe was Duggan acted twice since 08/10/16. Per the she became mentally unstable after she was dehydrated from being in a hot tub which caused her to have a urinary tract infection and then the urinary tract infection caused a chemical imbalance per the . Within the last 24 hours has become more unusual and uncontrolled patient has been acting erratically and uncooperative 8-15 MUCH MORE TALKATIVE TODAY BUT STILL PARANOID Objective Vitals Vital Signs Date Time Temp Pulse Resp B/P Pulse Ox O2 Delivery O2 Flow Rate FiO2 10/04/16 05:46 97.6 107 18 101/58 99 10/03/16 21:02 99.0 89 18 100/66 100 10/03/16 10:46 91 20 120/71 100 Room Air Result Diagram: 10/04/16 0754 10/04/16 0745 Other Results Laboratory Tests Test 10/04/16 10/04/16 07:45 07:54 Sodium Level 139 MEQ/L Potassium Level 3.7 MEQ/L Chloride Level 106 MEQ/L Carbon Dioxide Level 28.1 MEQ/L Anion Gap 5 MEQ/L Blood Urea Nitrogen 8 MG/DL Creatinine 0.89 MG/DL Estimat Glomerular Filtration 91 ML/MIN Rate Random Glucose 114 MG/DL Calcium Level 8.7 MG/DL Total Bilirubin 0.7 MG/DL Aspartate Amino Transf 16 U/L (AST/SGOT) Alanine Aminotransferase 25 U/L (ALT/SGPT) Alkaline Phosphatase 62 U/L Total Protein 7.3 GM/DL Albumin 3.7 GM/DL Triglycerides Level 54 MG/DL Cholesterol Level 160 MG/DL LDL Cholesterol 79 MG/DL HDL Cholesterol 70.6 MG/DL Cholesterol/HDL Ratio 2.26 RATIO Vitamin B12 Level 795 PG/ML 25-Hydroxy Vitamin D Total 24.2 ng/ML Free Thyroxine 1.33 NG/DL Thyroid Stimulating Hormone 1.430 uIU/ML 3rd Gen White Blood Count 4.7 TH/MM3 Red Blood Count 4.37 MIL/MM3 Hemoglobin 12.7 GM/DL Hematocrit 38.7 % Mean Corpuscular Volume 88.4 FL Mean Corpuscular Hemoglobin 29.1 PG Mean Corpuscular Hemoglobin 32.9 % Concent Red Cell Distribution Width 14.5 % Platelet Count 228 TH/MM3 Mean Platelet Volume 9.3 FL Neutrophils (%) (Auto) 57.0 % Lymphocytes (%) (Auto) 32.2 % Monocytes (%) (Auto) 7.3 % Eosinophils (%) (Auto) 3.0 % Basophils (%) (Auto) 0.5 % Neutrophils # (Auto) 2.7 TH/MM3 Lymphocytes # (Auto) 1.5 TH/MM3 Monocytes # (Auto) 0.3 TH/MM3 Eosinophils # (Auto) 0.1 TH/MM3 Basophils # (Auto) 0.0 TH/MM3 CBC Comment DIFF FINAL Differential Comment Imaging Last Impressions Head CT 10/02/16 0000 Signed Impressions: Service Date/Time: Sunday, October 02, 2016 17:51 - CONCLUSION: No acute intracranial findings. Kamaljit Hoffmann MD Objective Remarks GENERAL: This is a well-nourished, well-developed patient, in no apparent distress. SKIN: No rashes, ecchymoses or lesions. Cool and dry. HEAD: Atraumatic. Normocephalic. No temporal or scalp tenderness. EYES: Pupils equal round and reactive. Extraocular motions intact. No scleral icterus. No injection or drainage. ENT: Nose without bleeding, purulent drainage or septal hematoma. Throat without erythema, tonsillar hypertrophy or exudate. Uvula midline. Airway patent. NECK: Trachea midline. No JVD or lymphadenopathy. Supple, nontender, no meningeal signs. CARDIOVASCULAR: Regular rate and rhythm without murmurs, gallops, or rubs. S1- S2 no S3 or S4 no heave or thrill RESPIRATORY: Clear to auscultation. Breath sounds equal bilaterally. No wheezes , rales, or rhonchi. GASTROINTESTINAL: Abdomen soft, non-tender, nondistended. No hepato-splenomegaly , or palpable masses. No guarding. MUSCULOSKELETAL: Extremities without clubbing, cyanosis, or edema. No joint tenderness, effusion, or edema noted. No calf tenderness. Negative Homans sign bilaterally. NEUROLOGICAL: Awake and alert. Cranial nerves II through XII intact. Motor and sensory grossly within normal limits. Five out of 5 muscle strength in all muscle groups. Normal speech. Insight and judgment is limited--mood and behavior are inappropriate Medications and IVs Current Medications Haloperidol Lactate (Haldol Inj) 10 mg ONCE ONCE IM Last administered on 15:32; Start 10/02/16 at 15:15; Stop 10/02/16 at 15:16; Status DC Lorazepam (Ativan Inj) 2 mg ONCE ONCE IM Last administered on 10/02/16 15:31 ; Start 10/02/16 at 15:15; Stop 10/02/16 at 15:16; Status DC Lorazepam (Ativan Inj) 2 mg ONCE ONCE IV PUSH ; Start 10/02/16 at 17:30; Stop 10/02/16 at 17:30; Status DC Lorazepam (Ativan Inj) 2 mg ONCE ONCE IM Last administered on 10/02/16 17:47 ; Start 10/02/16 at 17:30; Stop 10/02/16 at 17:31; Status DC Potassium Chloride 20 meq 20 meq ONCE ONCE PO ; Start 10/02/16 at 18:15; Stop 10/02/16 at 18:16; Status DC Sodium Chloride (NS 1000 ml Inj) 1,000 ml @ 1,000 mls/hr Q1H IV Last administered on 10/02/16 18:49; Start 10/02/16 at 18:42; Stop 10/02/16 at 19:41 ; Status DC Sodium Chloride (NS Flush) 2 ml UNSCH PRN IV FLUSH FLUSH AFTER USING IV ACCESS ; Start 10/02/16 at 18:45 Ziprasidone (Geodon Inj) 20 mg ONCE ONCE IM Last administered on 10/03/16 11: 15; Start 10/03/16 at 11:15; Stop 10/03/16 at 11:16; Status DC Diphenhydramine HCl (Benadryl Inj) 50 mg ONCE ONCE IM Last administered on 11:15; Start 10/03/16 at 11:15; Stop 10/03/16 at 11:16; Status DC Lorazepam (Ativan) 1 mg Q6H PRN PO MODERATE TO SEVERE ANXIETY; Start 10/03/16 at 13:15 Lorazepam (Ativan Inj) 1 mg Q6H PRN IM MODERATE TO SEVERE ANXIETY Last administered on 10/03/16 16:27; Start 10/03/16 at 13:15 Lorazepam (Ativan) 0.5 mg Q12H PRN PO MODERATE TO SEVERE ANXIETY; Start at 13:15 Lorazepam (Ativan Inj) 0.5 mg Q12H PRN IM MODERATE TO SEVERE ANXIETY; Start at 13:15 Diphenhydramine HCl (Benadryl) 50 mg Q6H PRN PO For mild anxiety and/or EPS; Start 10/03/16 at 13:15; Status Hold Acetaminophen (Tylenol) 650 mg Q4H PRN PO Pain 1-5 or Temp >101F; Start at 13:15 Magnesium Hydroxide (Milk Of Magnesia Liq) 30 ml DAILY PRN PO CONSTIPATION; Start 10/03/16 at 13:15 Al Hydrox/Mg Hydrox/Simethicone (Mag-Al Plus Susp Liq) 30 ml Q6H PRN PO DYSPEPSIA; Start 10/03/16 at 13:15 Trazodone HCl (Desyrel) 50 mg HS PRN PO INSOMNIA; Start 10/03/16 at 13:15 Aripiprazole (Abilify) 2 mg HS PO Last administered on 10/03/16t 21:24; Start 10/03/16 at 21:00 Urinary Catheter: No Vascular Central Line Catheter: No A/P Problem List: (1) Rheumatoid arthritis ICD Code: M06.9 Status: Acute (2) Fibromyalgia ICD Code: M79.7 Status: Acute (3) Schizophrenia, paranoid type ICD Code: F20.0 Status: Acute (4) Hypokalemia ICD Code: E87.6 Status: Acute Assessment and Plan Schizophrenia/paranoid type will defer to psychiatry Recent depression versus schizophrenia and paranoid type will defer to psychiatry History of rheumatoid arthritis stable Compliance with medications due to schizophrenia paranoid type Anxiety and depression will defer to psychiatry Hypokalemia we will replace We'll check labs TSH free T4 and hemoglobin A1c magnesium and phosphate levels WILL SIGN OFF PLEASE RECONSULT IF NEEDED Tin Degroot DO Oct 04, 2016 10:35
[2016-10-04 11:27] LABS: HEMOGLOBIN A1a 1.2 %; HEMOGLOBIN A1b 0.8 %; HEMOGLOBIN Ao 86.3 %; HEMOGLOBIN F 1.1 %; HEMOGLOBIN LA1C 1.8 %; HEMOGLOBIN P3 3.2 %
--- NOTE | 2016-10-04 13:47 | EKG ---
Date Performed: 10/04/2016 Time Performed: 09:25:39 PTAGE: 31 years EKG: Sinus rhythm POSSIBLE LEFT ATRIAL ENLARGEMENT BORDERLINE ECG NO PREVIOUS TRACING DOCTOR: Luís Hillman Interpretating Date/Time 10/04/2016 13:46:21
[2016-10-04] MEDS ORDERED: diphenhydrAMINE HCL 50 MG CAP PO PRN (14:15)
[2016-10-04] MEDS ORDERED: MAGNESIUM HYDROXIDE SUSP 30 ML CUP PO PRN (14:15)
[2016-10-04] MEDS ORDERED: ALUMINUM/MAGNESIUM/SIMETH 30 ML CUP PO PRN (14:15)
[2016-10-04] MEDS ORDERED: hydrOXYzine HCL 50 MG TAB PO PRN (14:15)
--- NOTE | 2016-10-04 14:25 | HHI.PYPN ---
Subjective Remarks Patient seen in her room with nurse Rosalee and medical student Carie. Chart reviewed. Dr. Hernandez did first opinion petition supporting Duggan act patient was seen by me please note following note. I agree with Dr. Hernandez. Patient meets criteria for involuntary psychiatric hospitalization under the Duggan act. Thus will cosign second opinion petition supporting Duggan act. Patient is alert clean and neat Afro-Eritrean female sitting in her room with staff as mentioned she is quite guarded and vigilance. Showing no insight into behaviors that led to this hospitalization. She vaguely acknowledges past mental health issues. She acknowledges that appears to have been to prior Duggan acts. Though minimizing them. She states she has some past problems with little bit of depression and some anxiety. Though poor other documents in the chart this is been a significantly involving psychotic episode perhaps starting near the of her most recent child. Event at the present time patient does meet criteria for further stay under the Duggan act. We will attempt to reach patient's to get further information related to this lady. She did take the initial dose of 2 mg Abilify last night we'll continue that dose at the present time Review of Systems Constitutional: DENIES: Diaphoretic episodes, Fatigue, Fever, Weight gain, Weight loss, Chills, Dizziness, Change in appetite, Night Sweats Endocrine: DENIES: Abnorml menstrual pattern, Heat/cold intolerance, Polydipsia , Polyuria, Polyphagia Eyes: DENIES: Blurred vision, Diplopia, Eye inflammation, Eye pain, Vision loss , Photosensitivity, Double Vision Ears, nose, mouth, throat: DENIES: Tinnitus, Hearing loss, Vertigo, Nasal discharge, Oral lesions, Throat pain, Hoarseness, Ear Pain, Running Nose, Epistaxis, Sinus Pain, Toothache, Odynophagia Respiratory: DENIES: Apneas, Cough, Snoring, Wheezing, Hemoptysis, Sputum production, Shortness of breath Cardiovascular: DENIES: Chest pain, Palpitations, Syncope, Dyspnea on Exertion , PND, Lower Extremity Edema, Orthopnea, Claudication Gastrointestinal: DENIES: Abdominal pain, Black stools, Bloody stools, Constipation, Diarrhea, Nausea, Vomiting, Difficulty Swallowing, Anorexia Genitourinary: DENIES: Abnormal vaginal bleeding, Dysmenorrhea, Dyspareunia, Sexual dysfunction, Urinary frequency, Urinary incontinence, Urgency, Hematuria , Dysuria, Nocturia, Vaginal discharge Musculoskeletal: DENIES: Joint pain, Muscle aches, Stiffness, Joint Swelling, Back pain, Neck pain Integumentary: DENIES: Abnormal pigmentation, Pruritus, Rash, Nail changes, Breast masses, Breast skin changes, Nipple discharge Hematologic/lymphatic: DENIES: Bruising, Lymphadenopathy Immunologic/allergic: DENIES: Eczema, Urticaria Neurologic: DENIES: Abnormal gait, Headache, Localized weakness, Paresthesias, Seizures, Speech Problems, Tremor, Poor Balance Psychiatric: COMPLAINS OF: Depression, Suicidal Ideation (vague), Delusions ( vague) Objective Alert: Yes [place]: Person, Place, Date, Situation Mood: Calm, Depressed Affect: Restricted Memory Intact: Comment (fair) Hallucinations: Other (denies) Delusions: Yes Delusion Type: Paranoid Suicidal: Ideation (made vague statements now denying) Homicidal: Ideation (denies) Insight/Judgment Poor Labs Test 10/04/16 10/04/16 07:45 07:54 Sodium Level 139 MEQ/L Potassium Level 3.7 MEQ/L Chloride Level 106 MEQ/L Carbon Dioxide Level 28.1 MEQ/L Anion Gap 5 MEQ/L Blood Urea Nitrogen 8 MG/DL Creatinine 0.89 MG/DL Estimat Glomerular Filtration 91 ML/MIN Rate Random Glucose 114 MG/DL Hemoglobin A1c 5.1 % Calcium Level 8.7 MG/DL Total Bilirubin 0.7 MG/DL Aspartate Amino Transf 16 U/L (AST/SGOT) Alanine Aminotransferase 25 U/L (ALT/SGPT) Alkaline Phosphatase 62 U/L Total Protein 7.3 GM/DL Albumin 3.7 GM/DL Triglycerides Level 54 MG/DL Cholesterol Level 160 MG/DL LDL Cholesterol 79 MG/DL HDL Cholesterol 70.6 MG/DL Cholesterol/HDL Ratio 2.26 RATIO Vitamin B12 Level 795 PG/ML 25-Hydroxy Vitamin D Total 24.2 ng/ML Free Thyroxine 1.33 NG/DL Thyroid Stimulating Hormone 1.430 uIU/ML 3rd Gen White Blood Count 4.7 TH/MM3 Red Blood Count 4.37 MIL/MM3 Hemoglobin 12.7 GM/DL Hematocrit 38.7 % Mean Corpuscular Volume 88.4 FL Mean Corpuscular Hemoglobin 29.1 PG Mean Corpuscular Hemoglobin 32.9 % Concent Red Cell Distribution Width 14.5 % Platelet Count 228 TH/MM3 Mean Platelet Volume 9.3 FL Neutrophils (%) (Auto) 57.0 % Lymphocytes (%) (Auto) 32.2 % Monocytes (%) (Auto) 7.3 % Eosinophils (%) (Auto) 3.0 % Basophils (%) (Auto) 0.5 % Neutrophils # (Auto) 2.7 TH/MM3 Lymphocytes # (Auto) 1.5 TH/MM3 Monocytes # (Auto) 0.3 TH/MM3 Eosinophils # (Auto) 0.1 TH/MM3 Basophils # (Auto) 0.0 TH/MM3 CBC Comment DIFF FINAL Differential Comment Vitals/IOs Vital Signs Date Time Temp Pulse Resp B/P Pulse Ox O2 Delivery O2 Flow Rate FiO2 10/04/16 05:46 97.6 107 18 101/58 99 10/03/16 10:46 Room Air Assessment & Plan Problem List: (1) Schizophrenia, paranoid type ICD Code: F20.0 Assessment & Plan Estimated LOS: days patient continue psychotic and delusional, with little insight. For now continue treatment. Will attempt to gain further information from patient's Justification for Cont. Inpt. At this time patient will decompensate if placed in a lower level of care Discharge Planning To be determined Request HC Surrog/Guard Advoc?: Yes Ricky Esteban MD Oct 04, 2016 14:25
[2016-10-04] MEDS ORDERED: HALOPERIDOL LACTATE 5 MG/ML AMP IM STA (14:38)
[2016-10-04] MEDS ORDERED: LORazepam 2 MG/ML VIAL IM STA (14:38)
[2016-10-04] MEDS ORDERED: diphenhydrAMINE HCL 50 MG/ML VIAL IM STA (14:38)
[2016-10-04 18:00] VITALS: BP 103/52; PULSE 102; RESP 18; TEMP 97.9; O2SAT 98
[2016-10-04] MEDS: ARIPiprazole 2 MG TAB PO SCH ×2 (21:00→21:29)
[2016-10-05 05:59] VITALS: BP 102/64; PULSE 93; RESP 18; TEMP 97.7; O2SAT 95
--- NOTE | 2016-10-05 10:44 | HHI.PYPN ---
Subjective Remarks Patient seen in her room with nurse Rachelle, chart reviewed. Patient did need emergency treatment order of Haldol 10 Ativan to Benadryl 50 mg restricted her [id number] behavior screaming and yelling eating the windows in the nurses station. This morning patient is calmer somewhat focus though still no insight into her issues. She denies mental illness but she states she has no problems at this time with the Abilify. Patient demanded to be discharged today because she is one of "gods children". When I attempted to process her behaviors in a mental health issues she became angry irritable yelling at me "I you my God" distant patient remains quite psychotic and delusional. And labile. Will increase Abilify from 2 mg at bedtime to 5 mg at bedtime with patient's mood lability I feel we need to consider her diagnosis might be schizoaffective disorder bipolar type, will continue to assess Review of Systems Except as stated in HPI: all other systems reviewed are Neg Objective Alert: Yes [place]: Person, Place, Date, Situation Mood: Calm, Depressed Affect: Restricted Memory Intact: Comment (fair) Hallucinations: Other (denies) Delusions: Yes Delusion Type: Paranoid Suicidal: Ideation (made vague statements now denying) Homicidal: Ideation (denies) Insight/Judgment Very poor Vitals/IOs Vital Signs Date Time Temp Pulse Resp B/P Pulse Ox O2 Delivery O2 Flow Rate FiO2 10/05/16 05:59 97.7 93 18 102/64 95 10/03/16 10:46 Room Air Assessment & Plan Problem List: (1) Schizophrenia, paranoid type ICD Code: F20.0 Assessment & Plan Estimated LOS: days patient remained psychotic paranoid and labile with no insight. Will increase Abilify to 5 mg at bedtime Justification for Cont. Inpt. At this time patient will decompensate if place to the lower level of care Discharge Planning To be determined Request HC Surrog/Guard Advoc?: Yes Ricky Esteban MD Oct 05, 2016 10:44
[2016-10-05] MEDS: MULTIVITAMIN TAB PO SCH (10:45)
[2016-10-05 18:10] VITALS: BP 104/68; PULSE 81; RESP 18; TEMP 98.1; O2SAT 100
[2016-10-05] MEDS ORDERED: ARIPiprazole 5 MG TAB PO SCH (21:00)
[2016-10-06 06:24] VITALS: BP 102/59; PULSE 97; RESP 18; TEMP 98.6; O2SAT 99
[2016-10-06] MEDS: MULTIVITAMIN TAB PO SCH (08:57)
--- NOTE | 2016-10-06 16:43 | HHI.PYPN ---
Subjective Remarks Patient seen in her room with nurse Junito, chart reviewed, patient compliant medications. Patient somewhat calmer and focused with me though Vistaril the paranoia and vigilance. However she did share with us her vigilance fear and paranoia related to her 's job as a real estate lawyer and also with some of the racial stresses he has been under. This is caused her to significant insomnia with mild psychotic features. This has been going intermittent since that her 3 youngest child. She is willing to work with medications. At the present time will increase her Abilify to 5 mg a.m. and at bedtime. At this time I feel [place] perhaps add the possibility of PTSD into her differential diagnosis Review of Systems Except as stated in HPI: all other systems reviewed are Neg Objective Alert: Yes [place]: Person, Place, Date, Situation Mood: Calm, Depressed Affect: Restricted Memory Intact: Comment (fair) Hallucinations: Other (denies) Delusions: Yes Delusion Type: Paranoid Suicidal: Ideation (made vague statements now denying) Homicidal: Ideation (denies) Insight/Judgment Poor Vitals/IOs Vital Signs Date Time Temp Pulse Resp B/P Pulse Ox O2 Delivery O2 Flow Rate FiO2 10/06/16 06:24 98.6 97 18 102/59 99 10/03/16 10:46 Room Air Assessment & Plan Problem List: (1) Schizophrenia, paranoid type ICD Code: F20.0 (2) PTSD (post-traumatic stress disorder) ICD Code: F43.10 Assessment & Plan Estimated LOS: days patient remains somewhat psychotic though showing some mild insight and increased focus. She medication adjustments above Justification for Cont. Inpt. At this time patient will decompensate the placed in a lower level of care Discharge Planning To be determined Request HC Surrog/Guard Advoc?: Yes Ricky Esteban MD Oct 06, 2016 16:43
[2016-10-06 18:14] VITALS: BP 120/67; PULSE 75; RESP 18; TEMP 97.7; O2SAT 100
[2016-10-06] MEDS: ACETAMINOPHEN 325 MG TAB PO PRN (18:37)
[2016-10-06] MEDS: ARIPiprazole 5 MG TAB PO SCH (20:03)
[2016-10-07 06:28] VITALS: BP 92/55; PULSE 70; RESP 18; TEMP 98.1; O2SAT 98
--- NOTE | 2016-10-07 08:15 | HHI.PYPN ---
Subjective Remarks Patient seen in [place] with nurse Mary Anne, chart review, patient compliant medications. Patient stated she slept well last night. Patient continues calm pleasant with me with fair eye contact states she feels better of the medication that she is clear and more focused. Patient's affect has improved. Continues a marked decrease in the paranoia and vigilance and lability. She stated she had good visit with her . For now continue treatment. Will attempt to transfer patient to 2600 today Review of Systems Except as stated in HPI: all other systems reviewed are Neg Objective Alert: Yes [place]: Person, Place, Date, Situation Mood: Calm, Depressed Affect: Restricted Memory Intact: Comment (fair) Hallucinations: Other (denies) Delusions: Yes Delusion Type: Paranoid Suicidal: Ideation (made vague statements now denying) Homicidal: Ideation (denies) Insight/Judgment Poor Vitals/IOs Vital Signs Date Time Temp Pulse Resp B/P Pulse Ox O2 Delivery O2 Flow Rate FiO2 10/07/16 06:28 98.1 70 18 92/55 98 10/03/16 10:46 Room Air Assessment & Plan Problem List: (1) Schizophrenia, paranoid type ICD Code: F20.0 (2) PTSD (post-traumatic stress disorder) ICD Code: F43.10 Assessment & Plan Estimated LOS: days patient psychosis is resolving mood appears to be stabilizing. Compliant medication. For now continue treatment Justification for Cont. Inpt. And stent patient may decompensate if placed in a lower level of care Discharge Planning To be determined Request HC Surrog/Guard Advoc?: Yes Ricky Esteban MD Oct 07, 2016 08:14
[2016-10-07] MEDS: MULTIVITAMIN TAB PO SCH (08:49)
[2016-10-07] MEDS: ARIPiprazole 5 MG TAB PO SCH ×2 (08:49→20:49)
[2016-10-07 18:04] VITALS: BP 100/59; PULSE 72; RESP 18; TEMP 98.4; O2SAT 99
[2016-10-07] MEDS: LORazepam 2 MG/ML VIAL IM PRN (21:34)
[2016-10-08 05:58] VITALS: BP 95/55; PULSE 71; RESP 18; TEMP 97.2; O2SAT 99
[2016-10-08] MEDS: ARIPiprazole 5 MG TAB PO SCH ×2 (08:50→20:33)
[2016-10-08] MEDS: MULTIVITAMIN TAB PO SCH (08:50)
--- NOTE | 2016-10-08 17:35 | HHI.PYPN ---
Subjective Remarks Patient was seen and case discussed with nursing. Patient is pleasant and cooperative with exam. Affect appears elevated. Patient says that her stay here is a vacation and she enjoys her time off the stressors from work. Patient denies a history of of psychosis before the of her baby she is a poor historian. Today no auditory or visual hallucinations were noted and no delusions were elicited. Objective Alert: Yes [place]: Person, Place, Date, Situation Mood: Calm Affect: Other (mildly elevated) Memory Intact: Comment (fair) Hallucinations: Other (denies) Delusions: Yes Delusion Type: Other Suicidal: Ideation (denies) Homicidal: Ideation (denies) Insight/Judgment Poor Vitals/IOs Vital Signs Date Time Temp Pulse Resp B/P Pulse Ox O2 Delivery O2 Flow Rate FiO2 10/08/16 05:58 97.2 71 18 95/55 99 Assessment & Plan Problem List: (1) Schizophrenia, paranoid type ICD Code: F20.0 (2) PTSD (post-traumatic stress disorder) ICD Code: F43.10 Assessment & Plan Continue current treatment plan Justification for Cont. Inpt. Patient would decompensate in a less restrictive setting Request HC Surrog/Guard Advoc?: Yes Jad Figueroa DO Oct 08, 2016 17:35
[2016-10-08 18:39] VITALS: BP 107/69; PULSE 97; RESP 16; TEMP 97.8; O2SAT 98
[2016-10-09 06:18] VITALS: BP 90/52; PULSE 73; RESP 15; TEMP 97.1; O2SAT 100
[2016-10-09] MEDS: MULTIVITAMIN TAB PO SCH (09:00)
[2016-10-09] MEDS: ARIPiprazole 5 MG TAB PO SCH ×2 (09:00→20:35)
[2016-10-09 17:00] VITALS: BP 102/66; PULSE 87; RESP 18; TEMP 98.7; O2SAT 100
--- NOTE | 2016-10-09 19:19 | HHI.PYPN ---
Subjective Remarks Patient was seen and case discussed with nursing. Patient is compliant with medications and behaving well on the unit. Says she spoke with her friend and family today. She is perseverative on discharge. No manic symptoms to report today. She is not irritable and is no longer elated. No psychosis was elicited. She denies auditory or visual hallucinations Objective Alert: Yes [place]: Person, Place, Date, Situation Mood: Calm Affect: Euthymic Memory Intact: Comment (fair) Hallucinations: Other (denies) Delusions: Yes Delusion Type: Other Suicidal: Ideation (denies) Homicidal: Ideation (denies) Insight/Judgment Improving Vitals/IOs Vital Signs Date Time Temp Pulse Resp B/P (MAP) Pulse Ox O2 Delivery O2 Flow Rate FiO2 10/09/16 17:00 98.7 87 18 102/66 (78) 100 Assessment & Plan Problem List: (1) Schizophrenia, paranoid type ICD Codes: F20.0 - Paranoid schizophrenia Status: Acute (2) PTSD (post-traumatic stress disorder) ICD Codes: F43.10 - Post-traumatic stress disorder, unspecified Status: Acute Assessment & Plan Continue current treatment plan Justification for Cont. Inpt. Patient would decompensate in a less restrictive setting Request HC Surrog/Guard Advoc?: Yes Jad Figueroa DO Oct 09, 2016 19:19
[2016-10-10 05:44] VITALS: BP 108/55; PULSE 79; RESP 18; TEMP 98.4; O2SAT 97
[2016-10-10] MEDS: MULTIVITAMIN TAB PO SCH (08:16)
[2016-10-10] MEDS: ARIPiprazole 5 MG TAB PO SCH (08:16)
[2016-10-10] MEDS ORDERED: ARIP1TAB11 PO (12:18)
--- NOTE | 2016-10-10 12:30 | HHI.DS ---
Psychiatry Discharge Summary Inpatient Psychiatric care?: Yes Advance Directive: No Reason Not Provided: Due to Patient Condition Mental Health AdvanceDirective: No Health Care Proxy: No Admission Admission Date Oct 03, 2016 at 13:03 Admission Diagnosis: (1) PTSD (post-traumatic stress disorder) ICD Code: F43.10 - Post-traumatic stress disorder, unspecified (2) Schizophrenia, paranoid type ICD Code: F20.0 - Paranoid schizophrenia Brief History 31-year-old female with reported history of depression and 2 recent medical interventions for psychotic thinking currently presents under a Duggan act for irrational and bizarre behavior. Patient is a very poor historian, uncooperative and making little or no sense. She was brought to this facility under a Duggan act for acting erratically and not making sense. Apparently she has been prescribed Abilify but not taking this medication. She made statements that she wanted and was going to . She has been Duggan acted twice since August 10 of this year. According to the patient's , her mental instability came about as a result of dehydration and a urinary tract infection which occurred when she was in a hot tub. Over the last 24 hours, he reports her behavior has become increasingly unusual and uncontrollable. The patient was very difficult to interview by this physician. She claims this physician and the staff are laughing at her even though there is no evidence to support that. She is unable or unwilling to cooperate with staff and at one point blocked the exit of our nurse practitioner and nurse from the patient's room. She shows marked looseness of association as well as paranoid ideation. She feels healthcare providers here are attempting to harm her in some ill- defined way. She is unable to provide a cogent reason as to why she stopped taking her Abilify. Patient's was called again and states that her behavior has become increasingly erratic over the last 2 weeks. He believes she had a serotonin deficit in her brain but once that was corrected, something else has caused this irrational thinking and behavior. Tobacco Use In Past 30 Days: No Tobacco Past 30 Days Alcohol Use: Monthly or Less Hospital Course Patient's initial paranoia and delusions anger and irritability gradually resolved as the Abilify was titrated to 5 mg twice a day she has shown steady improvement. It appears she had a good weekend, had a good visit with her , now denying suicidality homicidality voices or visions. She is also showing some good insight and processing of this entire episode. Realizes the medications have significantly helped her focus and bring her back to her old self. I also called the patient's Neil at [phone] who verifies the above feels his is doing the dishes done in a long time and wishes her to return home today. I did discuss with patient and her the need for absolute sobriety, compliance with medication, compliance with psychiatric follow-up. They both agreed to thatwould be discharged today with Rx for Abilify 5 mg #60 one by mouth twice a day and no refill thus patient will be discharged today Results Blood Pressure 108 / 55 Vital Signs Date Time Temp Pulse Resp B/P (MAP) Pulse Ox O2 Delivery O2 Flow Rate FiO2 10/10/16 05:44 98.4 79 18 108/55 (72) 97 Laboratory Results Test 10/04/16 07:45 Cholesterol Level 160 MG/DL (120-200) HDL Cholesterol 70.6 MG/DL (40.0-60.0) Hemoglobin A1c 5.1 % (4.3-6.0) LDL Cholesterol 79 MG/DL (0-99) Triglycerides Level 54 MG/DL (42-150) Summary of Procedures None done Imaging Last Impressions Head CT 10/02/16 0000 Signed Impressions: Service Date/Time: Sunday, October 02, 2016 17:51 - CONCLUSION: No acute intracranial findings. Kamaljit Hoffmann MD Pending results at discharge: No Medications # of Antipsychotic meds at D/C: 1 Approp Antipsych med options 1 - Minimum of three failed multiple trials of monotherapy. 2 - Documented plan to taper to monotherapy due to previous use of multiple meds OR cross-taper in progress at D/C. 3 - Documentation of augmentation of Clozapine. 4 - Justification other than those listed in allowable values 1-3, document here : Discharge Discharge Date: Oct 10, 2016 Discharge Diagnosis: (1) Schizoaffective disorder, bipolar type Diagnosis: Principal ICD Code: F25.0 - Schizoaffective disorder, bipolar type (2) PTSD (post-traumatic stress disorder) Diagnosis: Secondary ICD Code: F43.10 - Post-traumatic stress disorder, unspecified Status: Acute Mental Status Exam at Disch Alert oriented Afro-Iraqi female calm and cooperative, she is normoactive. Mood is euthymic with good range intensity of her affect. Speech rate and rhythm within normal limits there no formal thought disorders. No auditory or visual hallucinations. No delusions. Insight and judgment is fair. Cognition grossly intact Pt Condition on Discharge: Stable Discharge Disposition: Discharge Home Discharge Instructions Diet Instructions: As Tolerated, No Restrictions Activities you can perform: Regular-No Restrictions Scheduled Appointment: [facility] Appointment Date: Nov 02, 2016 Appointment Time: 3:45 pm Discharge Time > 30 minutes Discharge/Advance Care Plan Health Problems: (1) Schizophrenia, paranoid type (2) PTSD (post-traumatic stress disorder) Goals to promote your health * To prevent worsening of your condition and complications * To maintain your health at the optimal level Directions to meet your goals Take your medications as prescribed Follow your dietary instruction Follow activity as directed Keep your appointments as scheduled Take your immunizations and boosters as scheduled If your symptoms worsen call your PCP, if no PCP go to Urgent Care Center or Emergency Room For 12/09 questions related to your inpatient stay or results of tests pending at discharge, please contact Dr. Ricky Esteban at Smoking is Dangerous to Your Health. Avoid second hand smoking Ricky Esteban MD Oct 10, 2016 12:30
[2016-10-10] MEDS: ACETAMINOPHEN 325 MG TAB PO PRN (13:16)
== END 2016-10-10 15:00 | disposition home or self-care (01) | DRG 885 ==
LOC: NEPD 14:47 → NEDA 10-03 13:03 → MERGE 10-03 13:03 → H270 10-03 14:40
PROVIDERS: ADMIT Psychiatry & Neurology Psychiatry; ATTEND Psychiatry & Neurology Psychiatry
DX: F20.0 Paranoid schizophrenia (principal); E87.6 Hypokalemia; F43.10 Post-traumatic stress disorder, unspecified; M06.9 Rheumatoid arthritis, unspecified; M79.7 Fibromyalgia
CPT/HCPCS: 70450; 80053; 80061; 80307; 81001; 82306; 82607; 83036; 84439; 84443; 84703; 85025; 93005; 96372; J1200; J1630; J2060; J3486; J7030